=== PATIENT | female | born 1985 | race Caucasian/White ===

== ENCOUNTER 2016-03-25 12:44 | Emergency (ER) | payer OTHER ==
[2016-03-25] MEDS ORDERED: NS 1,000 ML IV ONE (14:03)
[2016-03-25] MEDS ORDERED: METOCLOPRAMIDE 10 MG/2 ML VIAL IVP ONE (14:03)
[2016-03-25 14:24] LABS: % IMMATURE GRANULYOCYTES 0.2 % (0.0-1.1); ABSOLUTE IMMATURE GRANULOCYTES 0.01 10^3/uL (0.00-0.10); ADD DIFF? NO; ADD MORPH? NO; ADD SCAN? NO; ATYPICAL LYMPHOCYTE FLAG 70 (0-99); FRAGMENT RBC FLAG 0 (0-99); HEMOGLOBIN 15.5 g/dL (12.6-16.3); LEFT SHIFT FLG 30 (0-99); LIPEMIA HEMOLYSIS FLAG 80 (0-99); MEAN CELL HEMOGLOBIN 31.4 pg (27.9-34.1); MEAN CELL HEMOGLOBIN CONCENTR. 33.7 g/dL (32.4-36.7); MEAN CELL VOLUME 93.1 fL (81.5-99.8); MEAN PLATELET VOLUME 9.2 fL (8.7-11.7); PLATELET CLUMPS FLAG 10 (0-99); PLATELET COUNT 139 10^3/uL (150-400); RED BLOOD CELL COUNT 4.94 10^6/uL (4.18-5.33); RED CELL DISTRIBUTION WIDTH 12.1 % (11.5-15.2)
[2016-03-25 14:44] LABS: ANION GAP 10 mEq/L (8-16); CALCIUM 9.1 mg/dL (8.5-10.4); CARBON DIOXIDE 26 mEq/l (22-31); CHLORIDE 101 mEq/L (97-110); CREATININE 0.9 mg/dL (0.6-1.0); GLOMERULAR FILTRATION RATE > 60; GLUCOSE 91 mg/dL (70-100); POTASSIUM 4.5 mEq/L (3.5-5.2); SODIUM 137 mEq/L (134-144)
--- NOTE | 2016-03-25 14:53 | UCPHY ---
H & P Patient Type: Established HPI/ROS: CHIEF COMPLAINT: Headache, rash HISTORY OF PRESENT ILLNESS: several days of frontal headache with an onset of rash today. Headache has been present for 3 days. It was gradual in onset. [id number] severity. Currently 6. It does not radiate. There was no trauma or sudden onset. It is not the worse headache of her life. No history of blood thinner use. No particular modifying factors for the headache.No neck pain or stiffness. Subjective fever at home yesterday. No recent travel or surgery. No vector inoculations. She does have some mild tenderness to the neck, but no neck stiffness or true pain. The rash is generalized to the trunk and arms and now to the legs. It is nonpruritic. It is red and raised. She denies any tick bites or camping. No abdominal pain. No nausea or vomiting. No other specific complaints or modifying factors. REVIEW OF SYSTEMS: Ten systems reviewed and are negative unless otherwise noted in the HPI EXAMINATION General Appearance: Alert, no distress Head: normocephalic, atraumatic Eyes: Pupils equal and round, no conjunctival pallor or injection ENT, Mouth: Mucous membranes moist Neck: Normal inspection, supple, non-tender, No meningismus.Negative brudzinski. Negative kernig. Respiratory: Lungs are clear to auscultation Cardiovascular: rate 108, regular rhythm Gastrointestinal: Abdomen is soft and nontender Back: non-tender, no bony abnormalities Neurological: A&O, nonfocal, normal gait Skin: Warm and dry, [place] rash to the trunk, arms, legs. No petechiae. No purpura. No target lesions Extremities: Nontender, no pedal edema Psychiatric: Mood and affect normal Differential Diagnoses: 1. headache 2. migraine headache 3. viral exanthem 4. scarlet fever MDM: Headache and rash without any abnormalities on examination. no meningismus. No neck tenderness. No fever. No leukocytosis. Very mild thrombocytopenia. Labs are otherwise within normal limits. She is feeling significantly better after IV fluid resuscitation, IV Reglan, IV Benadryl. Her pain is now nearly a 0. discharged home with Fioricet with codeine for headache, follow up with primary care physician, and prophylactic doxycycline. She has strict return to the clinic or emergency department precautions for worsening headache, neck pain or stiffness, fever or worsening rash. Patient is comfortable with this plan and discharged home in stable condition. Smoking Status: Light smoker Constitutional: Initial Vital Signs Temperature (C) 98.8 F 03/25/16 13:27 Heart Rate 96 03/25/16 13:27 Respiratory Rate 16 03/25/16 13:27 Blood Pressure 155/65 H 03/25/16 13:27 O2 Sat (%) 99 03/25/16 13:27 O2 Delivery Mode Room Air Allergies/Adverse Reactions: No Known Allergies Allergy (Verified 03/25/16 13:26) Home Medications: Medication Instructions Recorded Herbals/Supplements -Info Only 02/18/16 Ibuprofen 02/18/16 [place] 5/325 (*) 02/18/16 Codeine/Butalbit/Acetamin/Caff 1 each PO Q6-8PRN PRN #20 capsule 03/25/16 [Fioricet-Cod 83-55-444-40 Cap] Doxycycline Hyclate 100 mg PO BID #28 capsule 03/25/16 Medical Decision Making - Data Points Laboratory Results: Laboratory Results 03/25/16 14:17 03/25/16 03/25/16 03/25/16 Unknown 14:17 13:37 WBC 4.16 10^3/uL (3.80-9.50) RBC 4.94 10^6/uL (4.18-5.33) Hgb 15.5 g/dL (12.6-16.3) Hct 46.0 % (38.0-47.0) MCV 93.1 fL (81.5-99.8) MCH 31.4 pg (27.9-34.1) MCHC 33.7 g/dL (32.4-36.7) RDW 12.1 % (11.5-15.2) Plt Count 139 L 10^3/uL (150-400) MPV 9.2 fL (8.7-11.7) Neut % (Auto) 74.8 H % (39.3-74.2) Lymph % (Auto) 13.2 L % (15.0-45.0) [place] % (Auto) 7.5 % (4.5-13.0) Eos % (Auto) 4.1 % (0.6-7.6) Baso % (Auto) 0.2 L % (0.3-1.7) Nucleat RBC Rel Count 0.0 % (0.0-0.2) Absolute Neuts (auto) 3.11 10^3/uL (1.70-6.50) Absolute Lymphs (auto) 0.55 L 10^3/uL (1.00-3.00) Absolute Monos (auto) 0.31 10^3/uL (0.30-0.80) Absolute Eos (auto) 0.17 10^3/uL (0.03-0.40) Absolute Basos (auto) 0.01 L 10^3/uL (0.02-0.10) Absolute Nucleated RBC 0.00 10^3/uL (0-0.01) Immature Gran % 0.2 % (0.0-1.1) Immature Gran # 0.01 10^3/uL (0.00-0.10) Sodium Pending Potassium Pending Chloride Pending Carbon Dioxide Pending Anion Gap Pending BUN Pending Creatinine Pending Estimated GFR Pending Glucose Pending Calcium Pending Beta HCG, Qual Pending [place] Total Antibody Pending B.burgdorferi DNA Sourc Cancelled B. burgdorferi DNA Cancelled Influenza Typ A,B (DFA) NEGATIVE FOR FLU (NEGATIVE) Group A Strep Screen NEGATIVE (NEGATIVE) Group A Strep DNA Pending Medications Given: Discontinued Medications Diphenhydramine HCl (Benadryl Injection) 25 mg IVP EDNOW ONE Stop: 03/25/16 14:04 Last Admin: 03/25/16 14:24 Dose: 25 mg Sodium Chloride (Ns) 1,000 mls @ 0 mls/hr IV ONCE ONE PRN Reason: Wide Open Stop: 03/25/16 14:04 Last Admin: 03/25/16 14:25 Dose: 1,000 mls Metoclopramide HCl (Reglan Injection) 10 mg IVP EDNOW ONE Stop: 03/25/16 14:04 Last Admin: 03/25/16 14:24 Dose: 10 mg Departure - Departure Disposition: Home, Routine, Self-Care Clinical Impression: Rash Headache Qualifiers: Headache type: unspecified Headache chronicity pattern: acute headache Intractability: not intractable Qualifier Code: (R51) Headache Condition: Good Instructions: General Headache (ED), Dermatitis (ED) Additional Instructions: Continue with medications as prescribed. Return to this facility to the emergency department immediately for worsening headache, neck pain or stiffness , fever, worsening rash. Prescriptions: Doxycycline Hyclate 100 mg PO BID #28 capsule Codeine/Butalbit/Acetamin/Caff [Fioricet-Cod [id number] Cap] 1 each PO Q6- 8PRN PRN #20 capsule PRN Reason: Headache - PQRS PQRS Measurement: Not applicable
[2016-03-25 15:31] VITALS: TEMP 98
[2016-03-25 15:55] VITALS: BP 124/62; PULSE 85; RESP 18; O2SAT 96
== END 2016-03-25 15:54 | disposition home or self-care (01) ==
LOC: CED 12:44
DX: R51 Headache (principal); L30.9 Dermatitis, unspecified
CPT/HCPCS: 80048-PO; 84703-PO; 85025-PO; 86618-90; 87400-PO; 87880-PO; 96361-PO; 96374-PO; 96375-PO; 99215-PO; G0463-PO; J2765

== ENCOUNTER 2016-07-08 14:12 | Emergency (ER) | payer OTHER ==
[2016-07-08 14:20] VITALS: TEMP 97.7
--- NOTE | 2016-07-08 14:51 | CPEKG ---
Heart Rate: 85 RR Interval: 706 P-R Interval: 132 QRSD Interval: 84 QT Interval: 412 QTC Interval: 490 P [place]: 71 QRS [place]: 77 T Wave [place]: 43 EKG Severity - BORDERLINE ECG - EKG Impression: SINUS RHYTHM EKG Impression: BORDERLINE PROLONGED QT INTERVAL Electronically Signed By: Darvin Huerta 08-Jul-2016 15:53:14
--- NOTE | 2016-07-08 15:02 | UCPHY ---
H & P Time Seen by Provider: 07/08/16 14:32 Patient Type: Established HPI/ROS: This patient describes a heavy chest. Her recent social history is notable for her 37-year-old brother dying 2 days ago from a drug overdose. She feels intermittently panicky with some tingling in her hands. She reports some intermittent dyspnea that she associates with anxiety. She also has loose stools over the past 2 days and she reports that she has had this with anxiety before. No other associated symptoms. ROS: Constitutional: No complaints HEENT: No recent URI symptoms. No headache. Pulmonary: No pleuritic pain. Currently not short of breath. No coughing cardiovascular: No heart palpitations or lightheadedness. No lower extremity swelling or calf pain. GI: No complaints psychiatric: She admits grief but denies any feeling of suicidal ideation or homicidal ideation. and 10 point ROS is otherwise negative Smoking Status: Current every day smoker Physical Exam: General Appearance: Alert, no distress. Eyes: Pupils equal and round no pallor or injection. ENT, Mouth: Mucous membranes moist. Respiratory: There are no retractions, lungs are clear to auscultation. Cardiovascular: Regular rate and rhythm. No murmur gallop rub. No peripheral edema. No calf swelling or tenderness. No chest wall tenderness. Gastrointestinal: Abdomen is soft and nontender, no masses, bowel sounds normal. Neurological: Alert with no focal deficits. Skin: Warm and dry, no rashes. Musculoskeletal: Neck is supple nontender. Extremities are symmetrical, full range of motion. Psychiatric: Flat affect. Otherwise normal mood DIFFERENTIAL DIAGNOSIS: After history and physical exam differential diagnosis was considered for grief response, anxiety, out cardiac event or right heart strain. Constitutional: Initial Vital Signs Temperature (C) 36.5 C 07/08/16 14:13 Heart Rate 102 H 07/08/16 14:13 Respiratory Rate 18 07/08/16 14:13 Blood Pressure 131/98 H 07/08/16 14:13 O2 Sat (%) 98 07/08/16 14:13 O2 Delivery Mode Room Air Allergies/Adverse Reactions: No Known Allergies Allergy (Verified 07/08/16 14:20) Home Medications: Medication Instructions Recorded Diazepam [Valium 2 MG (*)] 2 - 6 mg PO TID PRN #20 tab 07/08/16 Zolpidem Tartrate 07/08/16 MDM/Departure - MDM Diagnostics: 12 lead EKG performed at 1448 reveals sinus rhythm at 85 Intervals normal except for borderline prolonged QT at [address] ST segments: Normal [place]: Normal Overall assessment sinus rhythm with borderline QT for complete read please refer to trace master. ED Course/Re-evaluation: Discussion: This patient is symptoms are most consistent with her grief response I counseled regarding this. I do not think she is having a primary pulmonary or cardiac event. Discussed basic will be during times of grief in transition. - Depart Disposition: Home, Routine, Self-Care Clinical Impression: Grief response, Situational anxiety Condition: Good Instructions: Grief and Loss (ED), Anxiety (ED) Additional Instructions: Diagnosis: 1. Acute grief response 2. Situational anxiety Plan: Try to eat 3 times a day despite lack of appetite Daily exercise for 20-30 minutes Daily relaxation for 20-30 minutes Valium if needed for anxiety or panic. No driving, alcohol or come Valium Follow up with primary care physician for any ongoing symptoms. Return here to the emergency department for any significant worsening despite the treatment plan Prescriptions: Diazepam [Valium 2 MG (*)] 2 - 6 mg PO TID PRN #20 tab PRN Reason: Anxiety Referrals: Romi Cabrales MD [Primary Care Provider] - As per Instructions - PQRS PQRS Measurement: NA
[2016-07-08 15:26] VITALS: BP 126/80; PULSE 74; RESP 16; O2SAT 99
== END 2016-07-08 15:07 | disposition home or self-care (01) ==
LOC: CED 14:12
DX: F43.22 Adjustment disorder with anxiety (principal); Z63.4 Disappearance and death of family member
CPT/HCPCS: 93010-PO; 99214-PO; G0463-PO

== ENCOUNTER → 2016-10-11 | Outpatient (CLI) | payer OTHER | LOC: FIMAGING 19:58 | PROVIDERS: ATTEND Family Medicine | DX: R05 Cough (principal) ==

== ENCOUNTER 2016-10-18 16:39 | Emergency (ER) | payer OTHER ==
[2016-10-18 16:56] VITALS: TEMP 99.3
[2016-10-18] MEDS ORDERED: NS 1,000 ML IV ONE (17:00)
[2016-10-18] MEDS ORDERED: ONDANSETRON 4 MG/2 ML VIAL IVP ONE (17:00)
--- NOTE | 2016-10-18 17:00 | EDPHY ---
H & P Time Seen by Provider: 10/18/16 16:50 HPI/ROS: 31-year-old female presents complaining of pain with swallowing of the middle of her chest, no pain in her throat. She denies cough she denies phlegm. She has had mild nausea however no vomiting. This pain began yesterday she has no prior history of heartburn, GERD, ulcers. Later she stated she had pain with deep inspiration. No leg pain, no leg swelling, no calf injuries. No history of clotting disorders. Review of systems As per HPI General no fever no chills no weakness HEENT no eye pain no eye discharge. No eye redness, no sore throat Respiratory no cough, no shortness of breath Cardiac positive chest pain, no peripheral edema GI no abdominal pain, no diarrhea, no constipation, positive nausea, no vomiting no flank pain, no hematuria, no dysuria Musculoskeletal no myalgias, no joint pain Heme no easy bruising, no easy bleeding Endo no polyuria, no polydipsia Skin no rashes, no pruritus Neuro no syncope, no dizziness, no headaches Psych is no suicidal ideation, no homicidal ideation Past Medical/Surgical History: Anxiety Insomnia Social History: Smokes daily Denies excessive drug or alcohol use Smoking Status: Current every day smoker Physical Exam: 31-year-old female Constitutional: Initial Vital Signs Temperature (C) 37.4 C 10/18/16 16:52 O2 Delivery Mode Room Air O2 (L/minute) 36.6 Allergies/Adverse Reactions: Sulfa (Sulfonamide Antibiotics) Allergy (Verified 10/18/16 16:50) Home Medications: Medication Instructions Recorded Zolpidem Tartrate 07/08/16 Ativan 10/18/16 Mag Hydrox/Al Hydrox/Simeth 1 tbs PO Q6PRN PRN #1 oral.susp 10/18/16 [Maalox Maximum Strength Suspension] Pantoprazole Sodium [Protonix 40mg 40 mg PO DAILY #30 tab 10/18/16 (*)] Medical Decision Making - Diagnostics Imaging Results: Imaging Impressions Chest X-Ray 10/18/16 18:08 Impression: Normal chest. ED Course/Re-evaluation: Patient seen and evaluated for mid sternal chest pain with eating, swallowing that began yesterday. Associated with some nausea. Differential diagnosis considered GERD, pneumomediastinum, pulmonary embolus, myocardial infarction, pancreatitis , cholecystitis, pneumo, pneumonia Chest x-ray normal Labs including CBC, CMP, lipase, PT PTT, D-dimer all within normal limits Patient given IV famotidine, Zofran, fluids with some relief as well as a GI cocktail with marked relief Impression GERD Plan Rx for Protonix, Maalox Follow up with primary care physician Return as needed - Data Points Laboratory Results: Laboratory Results 10/18/16 15:10 10/18/16 15:10 10/18/16 10/18/16 10/18/16 17:30 17:13 15:10 WBC RBC Hgb POC Hgb 14.6 gm/dL gm/dL (12.6-16.3) Hct POC Hct 43 % % (38-47) MCV MCH MCHC RDW Plt Count MPV Neut % (Auto) Lymph % (Auto) [place] % (Auto) Eos % (Auto) Baso % (Auto) Nucleat RBC Rel Count Absolute Neuts (auto) Absolute Lymphs (auto) Absolute Monos (auto) Absolute Eos (auto) Absolute Basos (auto) Absolute Nucleated RBC Immature Gran % Immature Gran # PT 12.6 SEC SEC (12.0-15.0) INR 0.97 (0.83-1.16) APTT 27.5 SEC SEC (23.0-38.0) D-Dimer < 0.27 ug/mLFEU ug/mLFEU (0.00-0.50) POC Sodium 140 mEq/L mEq/L (134-144) Sodium POC Potassium 3.6 mEq/L mEq/L (3.3-5.0) Potassium POC Chloride 102 mEq/L mEq/L (97-110) Chloride Carbon Dioxide Anion Gap POC BUN 10 mg/dL mg/dL (7-23) BUN Creatinine POC Creatinine 0.8 mg/dL mg/dL (0.6-1.0) Estimated GFR Glucose POC Glucose 88 mg/dL mg/dL (70-100) Calcium Total Bilirubin AST ALT Alkaline Phosphatase Total Protein Albumin Lipase Beta HCG, Qual NEGATIVE 10/18/16 10/18/16 15:10 15:10 WBC 7.56 10^3/uL 10^3/uL (3.80-9.50) RBC 4.41 10^6/uL 10^6/uL (4.18-5.33) Hgb 13.7 g/dL g/dL (12.6-16.3) POC Hgb Hct 39.8 % % (38.0-47.0) POC Hct MCV 90.2 fL fL (81.5-99.8) MCH 31.1 pg pg (27.9-34.1) MCHC 34.4 g/dL g/dL (32.4-36.7) RDW 12.9 % % (11.5-15.2) Plt Count 235 10^3/uL 10^3/uL (150-400) MPV 9.1 fL fL (8.7-11.7) Neut % (Auto) 69.4 % % (39.3-74.2) Lymph % (Auto) 20.5 % % (15.0-45.0) [place] % (Auto) 8.6 % % (4.5-13.0) Eos % (Auto) 0.9 % % (0.6-7.6) Baso % (Auto) 0.5 % % (0.3-1.7) Nucleat RBC Rel Count 0.0 % % (0.0-0.2) Absolute Neuts (auto) 5.24 10^3/uL 10^3/uL (1.70-6.50) Absolute Lymphs (auto) 1.55 10^3/uL 10^3/uL (1.00-3.00) Absolute Monos (auto) 0.65 10^3/uL 10^3/uL (0.30-0.80) Absolute Eos (auto) 0.07 10^3/uL 10^3/uL (0.03-0.40) Absolute Basos (auto) 0.04 10^3/uL 10^3/uL (0.02-0.10) Absolute Nucleated RBC 0.00 10^3/uL 10^3/uL (0-0.01) Immature Gran % 0.1 % % (0.0-1.1) Immature Gran # 0.01 10^3/uL 10^3/uL (0.00-0.10) PT INR APTT D-Dimer POC Sodium Sodium 142 mEq/L mEq/L (134-144) POC Potassium Potassium 3.9 mEq/L mEq/L (3.5-5.2) POC Chloride Chloride 106 mEq/L mEq/L (97-110) Carbon Dioxide 23 mEq/l mEq/l (22-31) Anion Gap 13 mEq/L mEq/L (8-16) POC BUN BUN 11 mg/dL mg/dL (7-23) Creatinine 0.8 mg/dL mg/dL (0.6-1.0) POC Creatinine Estimated GFR > 60 Glucose 84 mg/dL mg/dL (70-100) POC Glucose Calcium 9.4 mg/dL mg/dL (8.5-10.4) Total Bilirubin 0.9 mg/dL mg/dL (0.1-1.4) AST 45 IU/L IU/L (14-46) ALT 44 IU/L IU/L (9-52) Alkaline Phosphatase 73 IU/L IU/L (38-126) Total Protein 7.2 g/dL g/dL (6.3-8.2) Albumin 4.4 g/dL g/dL (3.5-5.0) Lipase 66.0 IU/L IU/L (23-300) Beta HCG, Qual Medications Given: Discontinued Medications Al Hydroxide/Mg Hydroxide (Maalox Susp) 30 ml PO ONCE ONE Stop: 10/18/16 18:00 Last Admin: 10/18/16 18:06 Dose: 30 ml Sodium Chloride (Ns) 1,000 mls @ 0 mls/hr IV ONCE ONE PRN Reason: Wide [place] Stop: 10/18/16 17:01 Last Admin: 10/18/16 17:16 Dose: 1,000 mls Famotidine/Sodium Chloride (Pepcid 20 Mg (Premix)) 50 mls @ 200 mls/hr IV EDNOW ONE Stop: 10/18/16 17:27 Last Admin: 10/18/16 17:25 Dose: 50 mls Ondansetron HCl (Zofran) 4 mg IVP EDNOW ONE Stop: 10/18/16 17:01 Last Admin: 10/18/16 17:17 Dose: 4 mg Point of Care Test Results: 10/18/16 17:13 POC Sodium 140 POC Potassium 3.6 POC Chloride 102 POC BUN 10 POC Creatinine 0.8 POC Glucose 88 Departure - Departure Disposition: Home, Routine, Self-Care Clinical Impression: GERD (gastroesophageal reflux disease) Condition: Good Instructions: Gastroesophageal Reflux Disease (ED) Additional Instructions: Follow up with your primary care this week if possible. Referrals: Jonas Roberts MD [Primary Care Provider] - As per Instructions Prescriptions: Mag Hydrox/Al Hydrox/Simeth [Maalox Maximum Strength Suspension] 1 tbs PO Q6PRN PRN #1 oral.susp PRN Reason: Pain, Moderate Pantoprazole Sodium [Protonix 40mg (*)] 40 mg PO DAILY #30 tab
[2016-10-18] MEDS ORDERED: FAMOTIDINE 20 MG/NACL 50 ML IV ONE (17:13)
[2016-10-18 17:17] LABS: % IMMATURE GRANULYOCYTES 0.1 % (0.0-1.1); ABSOLUTE IMMATURE GRANULOCYTES 0.01 10^3/uL (0.00-0.10); ADD DIFF? NO; ADD MORPH? NO; ADD SCAN? NO; ATYPICAL LYMPHOCYTE FLAG 10 (0-99); FRAGMENT RBC FLAG 0 (0-99); HEMATOCRIT 39.8 % (38.0-47.0); HEMOGLOBIN 13.7 g/dL (12.6-16.3); LEFT SHIFT FLG 10 (0-99); LIPEMIA HEMOLYSIS FLAG 90 (0-99); MEAN CELL HEMOGLOBIN 31.1 pg (27.9-34.1); MEAN CELL HEMOGLOBIN CONCENTR. 34.4 g/dL (32.4-36.7); MEAN CELL VOLUME 90.2 fL (81.5-99.8); MEAN PLATELET VOLUME 9.1 fL (8.7-11.7); PLATELET CLUMPS FLAG 0 (0-99); PLATELET COUNT 235 10^3/uL (150-400); RED BLOOD CELL COUNT 4.41 10^6/uL (4.18-5.33); RED CELL DISTRIBUTION WIDTH 12.9 % (11.5-15.2)
[2016-10-18] MEDS ORDERED: MAG HYDROX/AL HYDROX/SIMETH 30 ML UDCUP ONE (17:38)
[2016-10-18] MEDS ORDERED: LIDOCAINE 2% VISCOUS 15 ML UDCUP ONE (17:38)
[2016-10-18] MEDS ORDERED: MAG HYDROX/AL HYDROX/SIMETH 30 ML UDCUP PO ONE (17:59)
[2016-10-18 18:24] LABS: INR 0.97 (0.83-1.16); PROTIME(PATIENT) 12.6 SEC (12.0-15.0)
[2016-10-18 18:25] LABS: APTT 27.5 SEC (23.0-38.0)
[2016-10-18 18:37] LABS: ALANINE AMINOTRANSFERASE 44 IU/L (9-52); ALBUMIN 4.4 g/dL (3.5-5.0); ALKALINE PHOSPHATASE 73 IU/L (38-126); ANION GAP 13 mEq/L (8-16); ASPARTATE AMINOTRANSFERASE 45 IU/L (14-46); BILIRUBIN,TOTAL 0.9 mg/dL (0.1-1.4); CALCIUM 9.4 mg/dL (8.5-10.4); CARBON DIOXIDE 23 mEq/l (22-31); CHLORIDE 106 mEq/L (97-110); CREATININE 0.8 mg/dL (0.6-1.0); GLOMERULAR FILTRATION RATE > 60; GLUCOSE 84 mg/dL (70-100); POTASSIUM 3.9 mEq/L (3.5-5.2); SODIUM 142 mEq/L (134-144); TOTAL PROTEIN 7.2 g/dL (6.3-8.2)
[2016-10-18 19:21] VITALS: BP 123/78; PULSE 69; RESP 16; O2SAT 98
== END 2016-10-18 19:15 | disposition home or self-care (01) ==
LOC: CED 16:39
DX: K21.9 Gastro-esophageal reflux disease without esophagitis (principal); F17.200 Nicotine dependence, unspecified, uncomplicated
CPT/HCPCS: 71020-PO; 80053-PO; 82947-QW; 83690-PO; 84703-PO; 85025-PO; 85378-PO; 85610-PO; 85730-PO; 96374; J2405

== ENCOUNTER → 2016-12-30 | Outpatient (CLI) | payer OTHER | LOC: CIMAGING 16:47 | PROVIDERS: ATTEND Family Medicine | DX: D25.1 Intramural leiomyoma of uterus (principal); Z87.42 Personal history of other diseases of the female genital tract | CPT/HCPCS: 76856-PO ==

== ENCOUNTER → 2017-03-30 | Outpatient (CLI) | payer OTHER | LOC: CIMAGING 12:46 | PROVIDERS: ATTEND Family Medicine | DX: N63.11 Unspecified lump in the right breast, upper outer quadrant (principal) | CPT/HCPCS: 76641-PO ==

== ENCOUNTER → 2018-07-25 | Outpatient (CLI) | payer OTHER | LOC: CIMAGING 21:01 | PROVIDERS: ATTEND Family Medicine | DX: M54.5 Low back pain (principal); M51.35 Other intervertebral disc degeneration, thoracolumbar region | CPT/HCPCS: 72080-PO ==